=== PATIENT | female | born 1985 | race Caucasian/White ===

== ENCOUNTER 2024-01-26 05:29 | Emergency (ER) | payer MEDICAID ==
[~2024-01-26] VITALS: Ht 170.2 cm; Wt 65.8 kg
[2024-01-26] MEDS ORDERED: EPINEPHRINE (1:1000) 1 MG/ML AMPUL ONE (06:38)
[2024-01-26] MEDS ORDERED: predniSONE 20 MG TABLET ONE (06:39)
[2024-01-26] MEDS ORDERED: diphenhydrAMINE HCL 25 MG CAPSULE ONE (06:40)
[2024-01-26] MEDS ORDERED: FAMOTIDINE (20 MG) 20 MG TABLET ONE (06:40)
[2024-01-26] MEDS: FAMOTIDINE (20 MG) 20 MG TABLET PO ONE (06:50)
[2024-01-26] MEDS: predniSONE 10 MG TABLET PO ONE (06:50)
[2024-01-26] MEDS: diphenhydrAMINE HCL 25 MG CAPSULE PO ONE (06:50)
[2024-01-26] MEDS: EPINEPHRINE (1:1000) 1 MG/ML AMPUL SUBCUT ONE (06:51)
[2024-01-26 09:38] VITALS: BP 120/70; TEMP 98; O2SAT 98
== END 2024-01-26 09:38 | disposition home or self-care (01) ==
LOC: ER 05:40
DX: R21 Rash and other nonspecific skin eruption (principal)
CPT/HCPCS: 99284; 96372; Q0163; J0171; J7512 ×2